=== PATIENT | male | born 1980 | race Caucasian/White ===

== ENCOUNTER 2019-10-14 17:01 | Emergency (ER) | payer OTHER ==
[~2019-10-14] VITALS: Ht 188 cm; Wt 79.4 kg
[2019-10-14 18:12] LABS: HEMATOCRIT 39.7 % (42.0-52.0); HEMOGLOBIN 13.7 gm/dL (14.0-18.0); MCH 29.8 pg (26.0-34.0); MCHC 34.5 g/dL (28.0-37.0); MCV 86.4 fL (80.0-100.0); RBC 4.6 mil/uL (4.50-6.00); RDW 13.9 % (10.5-14.5); WBC 7.5 thou/uL (4.0-11.0)
[2019-10-14 18:24] LABS: SALICYLATE < 2.8 mg/dL (2.8-20.0)
[2019-10-14 18:26] LABS: URINE BILIRUBIN NEGATIVE (Negative); URINE BLOOD NEGATIVE (Negative); URINE CLARITY CLEAR; URINE COLOR YELLOW; URINE GLUCOSE-RANDOM* NEGATIVE (Negative); URINE KETONES NEGATIVE (Negative); URINE LEUKOCYTES-REFLEX NEGATIVE (Negative); URINE NITRITE-REFLEX NEGATIVE (Negative); URINE PROTEIN (DIPSTICK) NEGATIVE (Negative)
[2019-10-14 18:35] LABS: CALCIUM 8.2 mg/dL (8.5-10.1); CREATININE 0.8 mg/dL (0.7-1.3); POTASSIUM 3.6 mmol/L (3.5-5.1)
[2019-10-14 18:41] LABS: ALBUMIN 3.3 g/dL (3.4-5.0); MAGNESIUM 2.2 mg/dL (1.8-2.4); TOTAL BILIRUBIN 0.5 mg/dL (0.2-1.0); TOTAL PROTEIN 6.7 g/dL (6.4-8.2)
[2019-10-14 18:46] LABS: AMP/METHAMP POSITIVE (Negative); BARBITURATES Negative (Negative); BENZODIAZEPINES Negative (Negative); COCAINE Negative (Negative); METHADONE Negative (Negative); OPIATES Negative (Negative); PCP Negative (Negative)
[2019-10-14 20:50] VITALS: BP 115/60
== END 2019-10-14 20:51 | disposition home or self-care (01) ==
LOC: ER 17:01
PROVIDERS: Emergency Medicine
DX: F10.10 Alcohol abuse, uncomplicated (principal); F15.10 Other stimulant abuse, uncomplicated; F43.10 Post-traumatic stress disorder, unspecified; Z88.0 Allergy status to penicillin; Y90.9 Presence of alcohol in blood, level not specified

== ENCOUNTER 2020-04-04 02:39 | Emergency (ER) | payer OTHER ==
[~2020-04-04] VITALS: Ht 188 cm; Wt 79.4 kg
[2020-04-04 02:44] VITALS: BP 127/101
== END 2020-04-04 03:05 ==
LOC: ER 02:39
DX: T69.9XXA Effect of reduced temperature, unspecified, initial encounter (principal); Z88.0 Allergy status to penicillin